=== PATIENT | male | born 1990 ===

== ENCOUNTER 2018-05-03 22:10 | Emergency (ER) | payer SELFPAY ==
[2018-05-03 22:37] VITALS: PULSE 90; RESP 20; TEMP 97.6
[2018-05-03] MEDS ORDERED: Tetanus/Diphtheria Toxoids 0.5 ml Syringe IM ONE (23:59)
[2018-05-04] MEDS ORDERED: Tetanus/Diphtheria Toxoids 0.5 ml Syringe IM ONE (00:13)
[2018-05-04] MEDS ORDERED: Bacitracin 500 Units/gm Oint Foilpak UD ONE (00:28)
--- NOTE | 2018-05-04 02:50 | C.PDOC ---
History Of Present Illness 28 year old male brought in by EMS for alcohol intoxication. Patient sustained laceration to back of head after falling on a pavement. Denies LOC, dizziness, headache, or other injuries. Time Seen by Provider: 05/03/18 22:48 Chief Complaint (Nursing): Substance Abuse History Per: Patient History/Exam Limitations: no limitations Onset/Duration Of Symptoms: Days Current Symptoms Are (Timing): Still Present Past Medical History Reviewed: Historical Data, Nursing Documentation, Vital Signs Vital Signs: Last Vital Signs Temp 97.6 F 05/03/18 22:29 Pulse 90 05/03/18 22:29 Resp 20 05/03/18 22:29 BP 145/76 05/03/18 22:29 Pulse Ox 96 05/03/18 22:29 Family History: States: No Known Family Hx - Social History Hx Alcohol Use: Yes Hx Substance Use: No Review Of Systems Except As Marked, All Systems Reviewed And Found Negative. Constitutional: Negative for: Fever, Chills Cardiovascular: Negative for: Chest Pain Respiratory: Negative for: Shortness of Breath Gastrointestinal: Negative for: Nausea, Vomiting, Diarrhea Skin: Positive for: Other (Laceration on back of head) Neurological: Negative for: Headache, Dizziness, Other (LOC) Physical Exam - Physical Exam Appears: Non-toxic, No Acute Distress Skin: Warm, Dry Head: Laceration (2.5cm to posterior scalp area), Other (Full ROM; no ecchymosis) Eye(s): bilateral: Normal Inspection Oral Mucosa: Moist Neck: Supple Chest: Symmetrical Cardiovascular: Rhythm Regular Neurological/Psych: Oriented x3, Normal Speech Gait: Steady ED Course And Treatment O2 Sat by Pulse Oximetry: 96 (RA) Pulse Ox Interpretation: Normal - CT Scan/US CT Head Other Rad Studies (CT/US): Read By Radiologist, Radiology Report Reviewed CT/US Interpretation: FINDINGS: BRAIN. No acute intraparenchymal hemorrhage. No mass lesion. No CT evidence for acute territorial infarct. No midline shift or extra-axial collections. Retrocerebellar arachnoid cyst is seen. VENTRICLES: No hydrocephalus. ORBITS: The orbits are unremarkable. SINUSES AND MASTOIDS: The paranasal sinuses and mastoid air cells are clear. BONES: No fracture. IMPRESSION: No acute intracranial abnormality. Progress Note: CT Head ordered. Tenivac administered. CT showed no abnormalities. Laceration was irrigated with lidocaine and stapled (5). 5AM-. Pt is awake, AOx 3 , ambulatory with steady gait. Pt given all instructions. requested something to drink, juice given , VSS at discharge Laceration - Laceration Repair scalp Wound Length (In cm): 2.5 Description Of Wound: Linear Wound Examination: Irrigated With Saline, No FB With Wound Exploration Wound Closure: Chloe (x5) Wound Complexity: Simple (well tolerated by pt, dressing applied) Disposition - Disposition Referrals: 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 - Scribe Statement The provider has reviewed the documentation as recorded by the Scribe Zoraida Kaba All medical record entries made by the Christianoibangelo were at my direction and personally dictated by me. I have reviewed the chart and agree that the record accurately reflects my personal performance of the history, physical exam, medical decision making, and the department course for this patient. I have also personally directed, reviewed, and agree with the discharge instructions and disposition.
[2018-05-04 05:15] VITALS: BP 113/72
[2018-05-04 05:16] VITALS: O2SAT 96
--- NOTE | 2018-05-04 10:25 | CT ---
Date of service: 05/03/2018 PROCEDURE: CT HEAD WITHOUT CONTRAST. HISTORY: Head trauma, etoh COMPARISON: None available. TECHNIQUE: Axial computed tomography images were obtained through the head/brain without intravenous contrast. Radiation dose: Total exam DLP = 1067.94 mGy-cm. This CT exam was performed using one or more of the following dose reduction techniques: Automated exposure control, adjustment of the mA and/or kV according to patient size, and/or use of iterative reconstruction technique. FINDINGS: HEMORRHAGE: No intracranial hemorrhage. BRAIN: No mass effect or edema. No atrophy or chronic microvascular ischemic changes. Prominent cisterna magna left wing larger than right. VENTRICLES: No evidence of obstructive hydrocephalus. CALVARIUM: There are no acute calvarial fractures.. There is a small mid posterior superior scalp contusion. PARANASAL SINUSES: Minor mucosal thickening seen within the sphenoid sinus. MASTOID AIR CELLS: Unremarkable as visualized. No inflammatory changes. OTHER FINDINGS: None. IMPRESSION: No acute intracranial hemorrhage. Prominent cisterna magna. Small mid posterior superior scalp contusion.
== END 2018-05-04 05:15 | disposition home or self-care (01) ==
LOC: C.ER 22:10
DX: S01.01XA Laceration without foreign body of scalp, initial encounter (principal); W18.30XA Fall on same level, unspecified, initial encounter; Y92.480 Sidewalk as the place of occurrence of the external cause; F10.129 Alcohol abuse with intoxication, unspecified; Y90.9 Presence of alcohol in blood, level not specified

== ENCOUNTER 2018-05-11 18:01 | Emergency (ER) | payer SELFPAY ==
[2018-05-11 18:04] VITALS: BMI 23.1
[2018-05-11 18:07] VITALS: BP 132/76; PULSE 78; RESP 16; TEMP 98.8; O2SAT 98
--- NOTE | 2018-05-11 18:35 | C.PDOC ---
History Of Present Illness 28 year old male presents to the emergency department for a staple removal from his occipital scalp. Patient has no complaints at this time. Time Seen by Provider: 05/11/18 18:22 Chief Complaint (Nursing): Suture/Staple Removal History Per: Patient History/Exam Limitations: no limitations Onset/Duration Of Symptoms: Laceration Current Symptoms Are (Timing): Gone Location Of Injury: Posterior: Head Past Medical History Reviewed: Historical Data, Nursing Documentation, Vital Signs Vital Signs: Last Vital Signs Temp 98.8 F 05/11/18 18:04 Pulse 78 05/11/18 18:04 Resp 16 05/11/18 18:04 BP 132/76 05/11/18 18:04 Pulse Ox 98 05/11/18 18:04 - Medical History PMH: No Chronic Diseases Surgical History: No Surg Hx Family History: States: No Known Family Hx - Social History Hx Alcohol Use: Yes Hx Substance Use: No - Immunization History Hx Tetanus Toxoid Vaccination: No Hx Influenza Vaccination: No Hx Pneumococcal Vaccination: No Review Of Systems Except As Marked, All Systems Reviewed And Found Negative. Constitutional: Negative for: Fever, Chills Neurological: Negative for: Weakness, Numbness Physical Exam - Physical Exam Appears: Non-toxic, No Acute Distress Skin: Warm, Dry Head: Normacephalic, Other (healed wound to the occipital scalp with hiwot in place. ) Eye(s): bilateral: Normal Inspection Nose: Normal Neck: Normal, Supple Chest: Symmetrical Extremity: Normal ROM (all extremities) Neurological/Psych: Oriented x3, Normal Speech, Normal Cognition ED Course And Treatment O2 Sat by Pulse Oximetry: 98 (RA) Pulse Ox Interpretation: Normal Progress Note: Plan: Four hiwot removed from the occipital scalp without difficulty. Disposition - Disposition Referrals: [facility] at [facility] [Outside] Disposition: HOME/ ROUTINE Disposition Time: 18:34 Condition: STABLE Additional Instructions: Follow up with the medical doctor within 1-2 days. Return if worsened. 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 - Scribe Statement The provider has reviewed the documentation as recorded by the Scribe (Gordo Alvarez) All medical record entries made by the Scribe were at my direction and personally dictated by me. I have reviewed the chart and agree that the record accurately reflects my personal performance of the history, physical exam, [facility] decision making, and the department course for this patient. I have also personally directed, reviewed, and agree with the discharge instructions and disposition.
== END 2018-05-11 18:39 | disposition home or self-care (01) ==
LOC: C.ER 18:01
DX: Z48.02 Encounter for removal of sutures (principal)